=== PATIENT | male | born 1980 | race Caucasian/White ===

== ENCOUNTER 2017-02-21 13:08 | Inpatient (IN) | payer OTHER ==
[2017-02-21] VITALS (50 sets, daily range): BP systolic 70–147; BP diastolic 39–78
[~2017-02-21] VITALS: Ht 11 cm; Wt 117.4 kg
--- NOTE | ~2017-02-21 | P ---
[facility] [place] [address] PROCEDURE REPORT Name: BLACK NICOLAS Room #: 247-P ADM IN ..#: [id number] Admission: 02/21/17 Attend Phys: Zak Santacruz MD Discharge: Date of : 76 Report #: [id number] THIS REPORT FOR: //name// CC: Eriberto Kurtz MD [facility] physician/PCP Zak Santacruz MD DATE OF SERVICE: 02/22/2017 PROCEDURE PERFORMED: Upper endoscopy. HISTORY OF PRESENT ILLNESS: The patient is a 36-year-old male with bright red blood per rectum and approximately 2 days ago, was complaining of generalized weakness and dizziness. Denies any fevers or chills. He does report stools have been black at times with red clots. His admit hemoglobin was 5.2. He has never received a total of 5 units of packed cells. His hemoglobin at this time is 7.2. Plan is for EGD and colonoscopy. The patient has never had a GI bleed before. No previous history of endoscopy. He denies any NSAID use. DESCRIPTION OF PROCEDURE: The risks and benefits of the procedure were explained to the patient, those risks including but not limited to bleeding, perforation and the risk of sedation. He understood these risks and gave informed consent. Sedation was given using propofol per anesthesia. The procedure was performed in the ICU room at the bedside. Next, using a standard Bivarusinon upper endoscope, the scope was placed in the patient's mouth and advanced under direct vision through the esophagus, stomach and into the second portion of the duodenum. The larynx was normal in appearance. Esophagus was normal throughout. The GE junction was normal. Overall, the gastric mucosa was normal. The pylorus was normal and patent. The duodenal bulb, first and second portion were all normal. No evidence of blood. No abnormalities were noted. The scope was then withdrawn and the procedure terminated. The patient tolerated the procedure well. IMPRESSION: Normal upper endoscopy. RECOMMENDATIONS: We will proceed with colonoscopy next today. Thank you for allowing me to participate in his care. <ELECTRONICALLY SIGNED> By: Giovanni Stout MD 02/23/17 1234 1002 2244 Giovanni Stout MD /nt
--- NOTE | ~2017-02-21 | HC ---
[facility] [place] [address] CONSULTATION Name: BLACK NICOLAS Teja Room #: [facility] IN ..#: [id number] Admission: 02/21/17 Attend Phys: Zak Santacruz MD Discharge: Date of : 76 Report #: [id number] THIS REPORT FOR: //name// CC: [facility] physician/PCP Zak Santacruz DATE OF SERVICE: 02/21/2017 INFECTIOUS DISEASE CONSULTATION: REASON FOR CONSULTATION: I was asked to evaluate concerning diarrhea, leukocytosis, profound anemia and sepsis in the setting of diabetes and hyperglycemia. HISTORY OF PRESENT ILLNESS: The patient is a 36-year-old underlying type 2 diabetic who reports over the last 2 days, he used to have bloody diarrhea. Low grade fever without chills or sweats. Stools have been black to red with clots. He presents through the Emergency Room for further evaluation. He has been tachycardic. His hemoglobin was 5.2, blood pressure was stable. Blood sugars were over 400. He was alert and cooperative. During his evaluation now he became confused for about 2 minutes and was unable to speak coherently. This then resolved and then he was back to his baseline. No nausea, vomiting or abdominal pain. No dysuria or frequency. No cough or sputum production. Denies any headache, rash or arthritis symptoms. He has had no travel. He works as a [employer] at [employer]. ALLERGIES: None known. MEDICATIONS: None currently. Previously was on insulin, lisinopril, Lipitor and aspirin. Now on Zosyn and metronidazole. His insulin was restarted. PAST MEDICAL HISTORY: Diabetes and asthma. SOCIAL HISTORY: Nonsmoker, no significant alcohol intake, no HIV status. FAMILY HISTORY: Noncontributory. REVIEW OF SYSTEMS: Noted above. PHYSICAL EXAMINATION: VITAL SIGNS: He is afebrile, maximum temperature was 100 degrees, pulse 128, blood pressure 126/63, O2 saturation was normal on room air. GENERAL: He was alert and cooperative. SKIN: Unremarkable. LYMPH: Unremarkable. [facility] [address] [place] [address] CONSULTATION Name: BLACK NICOLAS Room #: [facility] IN ..#: [id number] Admission: 02/21/17 Attend Phys: Zak Santacruz MD Discharge: Date of : 76 Report #: [id number] HEENT: Unremarkable. CHEST: Clear. HEART: Regular and tachycardic. ABDOMEN: Soft, nontender, no appreciable hepatosplenomegaly or mass. He did have some fullness in the suprapubic region. EXTREMITIES: Unremarkable. LABORATORY STUDIES: Sodium 137, potassium 3.7, bicarbonate 26, creatinine 0.9. Blood glucose 270. Liver function tests normal. Lactate initially was 5.3, now 1.3. Drug screen negative. Hemoglobin 5.2, platelet count 196,000, white count was 20.5. Procalcitonin less than 0.5. Urinalysis had ketones and glucose. ABGs on room air showed a pO2 of 61, pCO2 of 38, pH 7.48. Blood cultures are pending. Chest x-ray clear. 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 He has collecting systems, marked bladder distention, sigmoid straining with several diverticula. IMPRESSION: A 36-year-old with GI bleeding, profound anemia and leukocytosis. I suspect the leukocytosis is related to his GI tract. I suspect diverticular disease with bleed. Outside chance, he has got inflammatory bowel disease. With blood clots being present, I would expect lower gastrointestinal tract source of his bleeding and would be more likely related to his distal colon with the changes on the CT scan showing diverticula. In addition, the patient has diabetes out of control. Likely hypertensive as well noting his profound anemia and blood pressure seems stable. He does have some changes in his kidney concerning for the previous infarct and scarring. PLAN: Would recommend continuing antibiotic coverage with Zosyn, pending further evaluation. I would have gastroenterology evaluate for endoscopy. He will have blood transfusion and will await blood cultures. We would also check urinalysis and urine culture. By: 12 0223 Eriberto Kurtz MD /nt
--- NOTE | ~2017-02-21 | HC ---
[facility] [place] [address] CONSULTATION Name: BLACK NICOLAS Room #: [facility]- ADM IN [facility].#: [id number] Admission: 02/21/17 Attend Phys: Zak Santacruz MD Discharge: Date of : 76 Report #: [id number] THIS REPORT FOR: //name// CC: [facility] physician/PCP Zak Santacruz MD DATE OF SERVICE: 02/22/2017 HISTORY OF PRESENT ILLNESS: The patient is a 36-year-old male who reports bright red blood per rectum for the last three days. He denies any abdominal pain. He has had some fevers apparently. He does report that passing dark stools with clots as well. No previous history of GI bleed. His admit hemoglobin was 5.2 and he was tachycardic on admission. He does have a history of diabetes. He denies any NSAIDs or aspirin use. He denies any reflux or dysphagia. His weight has currently been stable although he has been actively trying to lose weight in the past due to a history of obesity. He has been feeling dizzy in general. Overnight, he has received now a total of 5 units of packed cells, his hemoglobin at this time is in the 7 range. Blood pressure has been stable. The patient has been started on antibiotics. PAST MEDICAL HISTORY: Diabetes, previous history of obesity, hyperlipidemia, and hypertension. ALLERGIES: No known drug allergies. MEDICATIONS FROM HOME: None although discontinued medications in the past are aspirin, Lipitor, insulin, Zestril, and NovoLog. REVIEW OF SYSTEMS: As per HPI. SOCIAL HISTORY: Denies any tobacco or alcohol use at this time. FAMILY HISTORY: Negative for colon cancer or inflammatory bowel disease. PHYSICAL EXAMINATION: VITAL SIGNS: Temperature 99.4, blood pressure 104/69, respiratory rate is 20, and pulse is 105. GENERAL: He is alert and oriented times 3, in no acute distress. HEENT: Sclerae are nonicteric. Oropharynx is clear. NECK: Supple without lymphadenopathy. CARDIOVASCULAR: Regular rate and rhythm. CHEST: Clear to auscultation bilaterally. ABDOMEN: Soft. He is nontender, nondistended, normoactive bowel sounds. EXTREMITIES: No cyanosis, clubbing or edema. [address] [address] CONSULTATION Name: BLACK NICOLAS Room #: [address] [place] [address] [place] .R.#: [id number] Admission: 02/21/17 Attend Phys: Zak Santacruz MD Discharge: Date of : 76 Report #: [id number] LABORATORY DATA: Sodium 138, potassium 3.9, chloride 108, bicarbonate 25, BUN 9, creatinine 0.8, glucose 171, AST 11, total bilirubin 0.4, alkaline phosphatase 64, magnesium 1.6, total protein 5.9, and albumin 3.1. WBC is 18.2, this is down from 20.5 on admission. Hemoglobin initially was 5.2 and again, he has received 5 units of packed cells, 7.2 at this time, platelet count is 127. CT scan of the abdomen and pelvis, occasional sigmoid diverticula with minor stranding with diverticulitis difficult to exclude, marked distention of the urinary bladder. ASSESSMENT AND PLAN: Hematochezia with acute blood loss anemia, etiology is unclear at this time, suspect possible diverticular bleed. The patient also with an elevated white count and bandemia. He has now been placed on IV antibiotics. Plan is to proceed with EGD and colonoscopy today. The patient was prepped last evening. We will make further recommendations after endoscopy. In the meantime, continue close monitoring of his hemoglobin as well as PPI. Thank you for allowing me to participate in his care. <ELECTRONICALLY SIGNED> By: Giovanni Stout MD 02/23/17 1234 1134 0016 Giovanni Stout MD /nt
--- NOTE | ~2017-02-21 | P ---
[facility] [place] [address] PROCEDURE REPORT Name: BLACK NICOLAS Room #: [facility]-P ADM IN ..#: [id number] Admission: 02/21/17 Attend Phys: Zak Santacruz MD Discharge: Date of : 76 Report #: [id number] THIS REPORT FOR: //name// CC: [facility] physician/PCP Zak Santacruz MD DATE OF SERVICE: 02/22/2017 PROCEDURE PERFORMED: Colonoscopy with polypectomy. HISTORY OF PRESENT ILLNESS: The patient is a 36-year-old male with an approximately 3-day history of hematochezia. Admit hemoglobin is in the 5 range. He has now received total of 5 units of packed cells overnight. His hemoglobin now is 7.2. He was tachycardic. He has an elevated white count. CT shows diverticula in the sigmoid colon with possible stranding. Plan is for colonoscopy. EGD was just performed, which was normal. DESCRIPTION OF PROCEDURE: The risks and benefits of the procedure were explained to the patient and those risks including but not limited to bleeding, perforation and the risk of sedation. He understood these risks and gave informed consent. Sedation was given using propofol per anesthesia. The procedure was performed in the intrinsic care unit at the bedside. Next, a digital rectal exam was initially performed, which was normal. Next, using a standard Fujinon colonoscope, the scope was placed in the patient's anus and advanced under direct vision to the cecum. The entire colon had bright red blood throughout. Multiple washings were performed as well as aspirations. It has been over an hour during the procedure. The cecum and ileocecal valve were normal in appearance. There is evidence of pandiverticulosis from the ascending colon to the sigmoid colon, no obvious bleeding source was noted but again, spent a long time washing and aspirating. There were small amounts of bright red blood throughout the colon after washings were performed. In the sigmoid colon, there was an 8 mm partially pedunculated polyp. This was removed by snare cautery. There was a little bit of bleeding after removal, single endoclip was placed. No further bleeding was noted. This polyp was not able to be retrieved, did appear to be a benign adenomatous type of polyp. The rectal mucosa was normal. The scope was then withdrawn and the procedure terminated. The patient tolerated the procedure well. IMPRESSION: 1. Pandiverticulosis likely source of gastrointestinal bleed or diverticular bleed. No obvious source seen on exam today despite multiple washings and aspirations. 2. Sigmoid colon polyp, unretrieved, appears to be a benign tubular adenomatous type polyp. [address] [address] PROCEDURE REPORT Name: BLACK NICOLAS Room #: 247-P [facility] IN M.R.#: [id number] Admission: 02/21/17 Attend Phys: Zak Santacruz MD Discharge: Date of : 76 Report #: [id number] RECOMMENDATIONS: 1. We will proceed with nuclear medicine scan today. 2. Continue to monitor hemoglobin closely. 3. Repeat colonoscopy in 5 years due to polyp. Thank you for allowing me to participate in his care. <ELECTRONICALLY SIGNED> By: Giovanni Stout MD 02/23/17 1234 1139 0011 Giovanni Stout MD /nt
--- NOTE | ~2017-02-21 | EKG ---
[address] [address] ELECTROCARDIOGRAM REPORT Name: BLACK NICOLAS Room #: 247- ADM IN M.R.#: [id number] Admission: 02/21/17 Attend Phys: Zak Santacruz MD Discharge: Date of : 76 Report #: [id number] THIS REPORT FOR: //name// [facility] ED Test Date: 2017-02-21 Test Time: 14:16:58 Pat Name: BLACK NICOLAS Department: Room: [facility] Gender: M Predictive Maintenance Specialist: AGATA : 1980 Requested By: Nadia Mojica Order Number: [id number] MD: Tyrel Liz Measurements Intervals [place] Rate: 135 P: 12 HI: 115 QRS: 36 QRSD: 74 T: 31 QT: 287 QTc: 431 Interpretive Statements Sinus tachycardia Borderline T wave abnormalities Compared to ECG 11/14/2011 13:58:41 T-wave abnormality now present Electronically Signed On 02-22-2017 7:56:24 CDT by Tyrel Liz [email or web address] <ELECTRONICALLY SIGNED> By: Tyrel Liz MD, [facility] 02/22/17 0756 1416 1416 Tyrel Liz MD, [facility] /EPI
[~2017-02-21 13:08] MED LIST: ASPIRIN81 M2 PO; HUMULIN N100 UNIT/1 SQ; LIPITOR20 MG PO; LISINOPRIL10 MG PO; NOVOLOG100 UNIT/1 SUBQ
[2017-02-21 14:16] LABS: BASOPHILS 0.3 % (0.0-2.0)
[2017-02-21 14:19] LABS: ABSOLUTE NEUTROPHILS 13.3 thou/uL (1.4-8.2); EOSINOPHILS 1.1 % (0.0-3.0); LYMPHOCYTES 24.3 % (24.0-44.0); MCH 30.3 pg (26.0-34.0); MCHC 34.1 g/dL (28.0-37.0); MCV 88.8 fL (80.0-100.0); MONOCYTES 9.7 % (1.0-8.0); PLATELET COUNT 196 thou/uL (150-400); POLYS 64.6 % (36.0-66.0); RBC 1.71 mil/uL (4.50-6.00); RDW 13.2 % (10.5-14.5); WBC 20.5 thou/uL (4.0-11.0)
[2017-02-21 14:22] LABS: CREATININE 1.3 mg/dL (0.7-1.3); HEMATOCRIT 15.2 % (42.0-52.0); HEMOGLOBIN 5.2 gm/dL (14.0-18.0); MANUAL DIFF NO; POTASSIUM 4.3 mmol/L (3.5-5.1)
[2017-02-21] MEDS ORDERED: NOHOMEMEDICATIONS (14:22)
[2017-02-21 14:31] LABS: URINE BILIRUBIN NEGATIVE (Negative); URINE BLOOD NEGATIVE (Negative); URINE COLOR YELLOW; URINE GLUCOSE-RANDOM* 3+ (Negative); URINE KETONES 2+ (Negative); URINE NITRITE NEGATIVE (Negative); URINE PROTEIN (DIPSTICK) NEGATIVE (Negative); URINE UROBILINOGEN 0.2 E.U./dl (0.2-1.0)
[2017-02-21 14:41] LABS: AMP/METHAMP Negative (Negative); BARBITURATES Negative (Negative); BENZODIAZEPINES Negative (Negative); COCAINE Negative (Negative); METHADONE Negative (Negative); OPIATES Negative (Negative); PCP Negative (Negative); THC Negative (Negative)
[2017-02-21 15:03] LABS: ABG SAMPLE TYPE VENOUS; BE(vivo) 1.3 mmol/L (-2 to +3); HCO3 26.1 mmol/L (22.0-26.0); PCO2 VENOUS 42.3 mmHg (41.0-51.0); PO2 VENOUS 14.1 mmHg (35.0-45.0); sO2 VENOUS 17.9 % (65.0-85.0); tCO2 27.4 mmol/L (24.0-30.0)
[2017-02-21 15:04] LABS: LACTATE 4.57 mmol/L (0.5-2.0); O2Hb VENOUS 15.6 (65.0-85.0)
[2017-02-21 15:05] LABS: STICK SITE LINE
[2017-02-21 16:47] LABS: ABG SAMPLE TYPE ARTERIAL; HCO3 27.9 mmol/L (22.0-26.0); LACTATE 2.04 mmol/L (0.5-2.0); O2Hb 90.2 % (92.0-98.0); PO2 61.9 mmHg (80.0-100.0); STICK SITE L.RADIAL; pH 7.483 (7.360-7.450); sO2 93.4 % (92.0-98.0)
[2017-02-21 17:06] LABS: CALCIUM 8.2 mg/dL (8.5-10.1); CREATININE 1.3 mg/dL (0.7-1.3); POTASSIUM 4.3 mmol/L (3.5-5.1)
[2017-02-21 17:11] LABS: ALBUMIN 3.1 g/dL (3.4-5.0); PHOSPHORUS 3.4 mg/dL (2.5-4.9); TOTAL BILIRUBIN 0.4 mg/dL (<0.1-1.0); TOTAL PROTEIN 5.9 g/dL (6.4-8.2)
[2017-02-21 18:27] LABS: CALCIUM 7.4 mg/dL (8.5-10.1); CREATININE 0.9 mg/dL (0.7-1.3); POTASSIUM 3.7 mmol/L (3.5-5.1)
[2017-02-21 23:28] LABS: HEMATOCRIT 14.4 % (42.0-52.0); HEMOGLOBIN 4.9 gm/dL (14.0-18.0)
[2017-02-21 23:31] LABS: CALCIUM 6.7 mg/dL (8.5-10.1); POTASSIUM 3.4 mmol/L (3.5-5.1)
[2017-02-22] VITALS (89 sets, daily range): BP systolic 78–123; BP diastolic 42–76
[2017-02-22 00:07] LABS: HEMATOCRIT 13.4 % (42.0-52.0); HEMOGLOBIN 4.6 gm/dL (14.0-18.0)
[2017-02-22 04:05] LABS: MCH 30.2 pg (26.0-34.0); MCHC 34.5 g/dL (28.0-37.0); MCV 87.6 fL (80.0-100.0); PLATELET COUNT 127 thou/uL (150-400); RBC 2.07 mil/uL (4.50-6.00); RDW 13.4 % (10.5-14.5); WBC 18.2 thou/uL (4.0-11.0)
[2017-02-22 04:06] LABS: MANUAL DIFF YES
[2017-02-22 04:07] LABS: HEMATOCRIT 18.1 % (42.0-52.0); HEMOGLOBIN 6.2 gm/dL (14.0-18.0)
[2017-02-22 04:14] LABS: CALCIUM 6.7 mg/dL (8.5-10.1); CREATININE 0.8 mg/dL (0.7-1.3); POTASSIUM 3.8 mmol/L (3.5-5.1)
[2017-02-22 08:15] LABS: ABSOLUTE NEUTROPHILS 13.7 thou/uL (1.4-8.2); ANISOCYTOSIS SLIGHT; LARGE PLATELETS OCCASIONAL; NUCLEATED RBCS 1 /100WBC; TOTAL CELL COUNT 100
[2017-02-22 08:16] LABS: HYPOCHROMASIA SLIGHT; MACROCYTES SLIGHT; POLYCHROMASIA SLIGHT
[2017-02-22 08:18] LABS: HEMATOCRIT 20.9 % (42.0-52.0); HEMOGLOBIN 7.2 gm/dL (14.0-18.0)
[2017-02-22 10:51] LABS: MAGNESIUM 1.6 mg/dL (1.8-2.4); POTASSIUM 3.9 mmol/L (3.5-5.1)
[2017-02-22 11:55] LABS: MCH 31.6 pg (26.0-34.0); MCV 90.2 fL (80.0-100.0); RBC 2.17 mil/uL (4.50-6.00); RDW 14.6 % (10.5-14.5); WBC 15.3 thou/uL (4.0-11.0)
[2017-02-22 12:16] LABS: HEMATOCRIT 19.6 % (42.0-52.0); HEMOGLOBIN 6.9 gm/dL (14.0-18.0)
[2017-02-22 18:56] LABS: HEMATOCRIT 20.3 % (42.0-52.0); MCH 30.7 pg (26.0-34.0); MCHC 34.6 g/dL (28.0-37.0); MCV 88.7 fL (80.0-100.0); RBC 2.29 mil/uL (4.50-6.00); RDW 14.8 % (10.5-14.5); WBC 13.7 thou/uL (4.0-11.0)
[2017-02-23] VITALS (44 sets, daily range): BP systolic 93–139; BP diastolic 56–87
[2017-02-23 04:41] LABS: RBC 2.04 mil/uL (4.50-6.00)
[2017-02-23 04:43] LABS: ABSOLUTE NEUTROPHILS 5.6 thou/uL (1.4-8.2); BASOPHILS 0.3 % (0.0-2.0); EOSINOPHILS 2.2 % (0.0-3.0); LYMPHOCYTES 26.4 % (24.0-44.0); MCH 31.1 pg (26.0-34.0); MCHC 34.8 g/dL (28.0-37.0); MCV 89.4 fL (80.0-100.0); MONOCYTES 8.5 % (1.0-8.0); PLATELET COUNT 104 thou/uL (150-400); POLYS 62.6 % (36.0-66.0); RDW 14.8 % (10.5-14.5)
[2017-02-23 04:44] LABS: MANUAL DIFF NO
[2017-02-23 04:47] LABS: HEMATOCRIT 18.2 % (42.0-52.0); HEMOGLOBIN 6.3 gm/dL (14.0-18.0)
[2017-02-23 04:54] LABS: CALCIUM 6.9 mg/dL (8.5-10.1); CREATININE 0.9 mg/dL (0.7-1.3)
[2017-02-23 14:00] LABS: HEMATOCRIT 21.2 % (42.0-52.0); HEMOGLOBIN 7.3 gm/dL (14.0-18.0)
[2017-02-23 22:12] LABS: HEMATOCRIT 16.5 % (42.0-52.0); HEMOGLOBIN 5.8 gm/dL (14.0-18.0)
[2017-02-24] VITALS (32 sets, daily range): BP systolic 91–129; BP diastolic 60–87
[2017-02-24 05:15] LABS: HEMATOCRIT 21.1 % (42.0-52.0); HEMOGLOBIN 7.2 gm/dL (14.0-18.0); MCH 30.6 pg (26.0-34.0); MCHC 34.2 g/dL (28.0-37.0); MCV 89.3 fL (80.0-100.0); RBC 2.36 mil/uL (4.50-6.00); RDW 14.8 % (10.5-14.5); WBC 7.5 thou/uL (4.0-11.0)
[2017-02-24 05:36] LABS: CALCIUM 6.4 mg/dL (8.5-10.1); CREATININE 0.6 mg/dL (0.7-1.3); POTASSIUM 3.5 mmol/L (3.5-5.1)
[2017-02-24 08:58] LABS: HEMATOCRIT 22.5 % (42.0-52.0); HEMOGLOBIN 7.7 gm/dL (14.0-18.0)
[2017-02-24 14:45] LABS: HEMATOCRIT 22.4 % (42.0-52.0); HEMOGLOBIN 7.7 gm/dL (14.0-18.0)
[2017-02-24 14:59] LABS: PROTIME 10.6 Seconds (9.3-11.4)
[2017-02-24 20:44] LABS: HEMATOCRIT 21.5 % (42.0-52.0); HEMOGLOBIN 7.3 gm/dL (14.0-18.0)
[2017-02-25] VITALS (20 sets, daily range): BP systolic 84–146; BP diastolic 44–100
[2017-02-25 02:44] LABS: HEMOGLOBIN 6.9 gm/dL (14.0-18.0); RDW 15.7 % (10.5-14.5)
[2017-02-25 02:45] LABS: HEMATOCRIT 20.4 % (42.0-52.0); MCH 30.8 pg (26.0-34.0); MCV 90.7 fL (80.0-100.0); RBC 2.25 mil/uL (4.50-6.00); WBC 6.3 thou/uL (4.0-11.0)
[2017-02-25 05:24] LABS: CREATININE 0.7 mg/dL (0.7-1.3); POTASSIUM 3.8 mmol/L (3.5-5.1)
[2017-02-25 22:41] LABS: HEMATOCRIT 23.8 % (42.0-52.0); HEMOGLOBIN 8.2 gm/dL (14.0-18.0)
[2017-02-26 03:04] VITALS: BP 115/72
[2017-02-26 05:41] LABS: HEMATOCRIT 22.2 % (42.0-52.0); HEMOGLOBIN 7.6 gm/dL (14.0-18.0); MCH 30.6 pg (26.0-34.0); RBC 2.47 mil/uL (4.50-6.00); RDW 16.6 % (10.5-14.5); WBC 6.3 thou/uL (4.0-11.0)
[2017-02-26 07:58] VITALS: BP 138/84
[2017-02-26 12:07] VITALS: BP 131/90
[2017-02-26] MEDS ORDERED: AUGMENTIN 875-1 EACH PO (13:52)
[2017-02-26 14:33] VITALS: BP 131/90
== END 2017-02-26 15:19 | disposition home or self-care (01) | DRG 871 ==
LOC: ER 13:08 → ICU 14:58 → EROBS 14:58 → ICU 15:49 → 2N 02-25 19:30
PROVIDERS: Hospitalist; Internal Medicine; Internal Medicine Gastroenterology; Nuclear Medicine Nuclear Cardiology; Nurse Practitioner Acute Care; Physician Assistant; Specialist
PROC: 30233N1 Transfusion of Nonautologous Red Blood Cells into Peripheral Vein, Percutaneous Approach (ICD-10-PCS; principal; 2017-02-21)
PROC: 0DBN8ZZ Excision of Sigmoid Colon, Via Natural or Artificial Opening Endoscopic (ICD-10-PCS; 2017-02-22)
PROC: 0DJ08ZZ Inspection of Upper Intestinal Tract, Via Natural or Artificial Opening Endoscopic (ICD-10-PCS; 2017-02-22)
PROC: B4141ZZ Fluoroscopy of Superior Mesenteric Artery using Low Osmolar Contrast (ICD-10-PCS; 2017-02-24)
PROC: 0T9330Z Drainage of Right Kidney Pelvis with Drainage Device, Percutaneous Approach (ICD-10-PCS; 2017-02-24)
PROC: B4151ZZ Fluoroscopy of Inferior Mesenteric Artery using Low Osmolar Contrast (ICD-10-PCS; 2017-02-25)
DX: A41.9 Sepsis, unspecified organism (principal); E13.10 Other specified diabetes mellitus with ketoacidosis without coma; K92.2 Gastrointestinal hemorrhage, unspecified; D62 Acute posthemorrhagic anemia; N20.1 Calculus of ureter; E11.65 Type 2 diabetes mellitus with hyperglycemia; J45.909 Unspecified asthma, uncomplicated; D64.9 Anemia, unspecified; K52.9 Noninfective gastroenteritis and colitis, unspecified; D72.829 Elevated white blood cell count, unspecified; R65.20 Severe sepsis without septic shock; E78.5 Hyperlipidemia, unspecified; I10 Essential (primary) hypertension; D69.6 Thrombocytopenia, unspecified; D36.9 Benign neoplasm, unspecified site; N28.89 Other specified disorders of kidney and ureter; F41.9 Anxiety disorder, unspecified; Z79.82 Long term (current) use of aspirin; Z79.899 Other long term (current) drug therapy
CPT/HCPCS: 10078; 10081; 62110; 62900

== ENCOUNTER 2019-11-09 22:32 | Emergency (ER) | payer BC ==
[~2019-11-09] VITALS: Ht 180.3 cm; Wt 118.8 kg
[~2019-11-09 22:32] MED LIST changes: +AUGMENTIN 875-1 EACH PO; +NOHOMEMEDICATIONS
[2019-11-09] MEDS ORDERED: TERAZOSIN HCL10 MG PO (22:36)
[2019-11-09] MEDS ORDERED: PRINIVIL10 MG PO (22:36)
[2019-11-09 23:43] LABS: HEMATOCRIT 32.4 % (42.0-52.0); HEMOGLOBIN 11.2 gm/dL (14.0-18.0); MCH 31.3 pg (26.0-34.0); MCHC 34.7 g/dL (28.0-37.0); MCV 90.2 fL (80.0-100.0); RBC 3.59 mil/uL (4.50-6.00); RDW 12.7 % (10.5-14.5); WBC 8.6 thou/uL (4.0-11.0)
[2019-11-09 23:53] LABS: CALCIUM 8.1 mg/dL (8.5-10.1); CREATININE 1.1 mg/dL (0.7-1.3); POTASSIUM 4.6 mmol/L (3.5-5.1)
[2019-11-10 01:00] VITALS: BP 123/70
== END 2019-11-10 01:01 | disposition home or self-care (01) ==
LOC: ER 22:32
PROVIDERS: Emergency Medicine
DX: K92.2 Gastrointestinal hemorrhage, unspecified (principal); E11.9 Type 2 diabetes mellitus without complications; J45.909 Unspecified asthma, uncomplicated; Z79.899 Other long term (current) drug therapy